=== PATIENT | female | born 1960 | race Caucasian/White ===

== ENCOUNTER → 2018-07-10 | Outpatient (CLI) | payer OTHER ==
[~2018-07-10] MED LIST: AZITHROMYCIN 2250 MG PO; MEDROLDOSEPACK PO; NOHOMEMEDICATIONS; NORCO 5-325 TA1 EACH PO; PREDNISONE 10 M10 M1 PO; PROAIR HFA8.5 GM IH; PROVENTIL HFA6.7 G1 INH; TESSALON PERLE100 MG PO
--- NOTE | 2018-07-12 15:07 | PATH ---
[address] [address] PATHOLOGY RPT PROCEDURE Name: SYLVAINLEIGHANN MILLER Room: [facility].#: [id number] Admission: 07/10/18 Date of : 62 Discharge: Report #: [id number] Path Case #: [id number] Note [facility] Accession Number: [id number] TESTS RESULT FLAG UNITS REF RANGE LAB Clinician Provided Cytology Information No. of containers..01 Other (Miscellaneous) Source: THYROID DIAGNOSIS: LT THYROID INCONCLUSIVE. [place] CATEGORY III. ATYPIA OF UNDETERMINED SIGNIFICANCE. THIS INTERPRETATION INCLUDES EVALUATION OF A CELL BLOCK. SCANT CELLULARITY.SEE COMMENT COMMENT: RETAIN RNA ASSESSMENT IS PENDING AND WILL BE THE SUBJECT OF A SEPARATE REPORT. Pathologist ICD10: 02 R89.6 Signed out by: 02 Grey Muller MD, Pathologist NPI- [id number] Performed by: 01 James Apple, Slab Polisher ([facility]) Gross description: 01 25ML, RED, CLOUDY /LCS FLAG LEGEND: L-Low Normal,H-High Normal,LL-Alert Low,HH-Alert High <-Panic Low,>-Panic High,A-Abnormal,AA-Critical Abnormal Performed at: [address] [place] [address] Jasbir Rhodes MD, [address] [address] Grey Muller MD, Specimen Comment: A courtesy copy of this report has been sent to Specimen Comment: [phone]. Specimen Comment: Report sent to Specimen Comment: A duplicate report has been generated due to demographic updates. Performed at: [address], [place], [place] [id number] [place] [address] PATHOLOGY RPT PROCEDURE Name: LEIGHANN NARAYAN Room: [facility]#: [id number] Admission: 07/10/18 Date of : 62 Discharge: Report #: [id number] Path Case #: [id number] MD Jasbir Rhodes MD Phone: [phone]
== END | disposition home or self-care (01) ==
LOC: M.ULTRA 07:43
DX: E04.1 Nontoxic single thyroid nodule (principal); R89.6 Abnormal cytological findings in specimens from other organs, systems and tissues; Z88.6 Allergy status to analgesic agent; Z79.899 Other long term (current) drug therapy